=== PATIENT | male | born 1970 | race Hispanic/Latino ===

== ENCOUNTER 2017-07-19 13:34 | Emergency (ER) | payer OTHER | END 2017-07-19 14:57 | disposition home or self-care (01) | LOC: EDH 13:34 | DX: S70.361A Insect bite (nonvenomous), right thigh, initial encounter (principal); L08.9 Local infection of the skin and subcutaneous tissue, unspecified; Z72.0 Tobacco use; W57.XXXA Bitten or stung by nonvenomous insect and other nonvenomous arthropods, initial encounter; Y93.89 Activity, other specified; Y92.89 Other specified places as the place of occurrence of the external cause; Y99.8 Other external cause status ==

== ENCOUNTER 2021-08-03 15:17 | Inpatient (IN) | payer OTHER ==
[~2021-08-03] VITALS: Ht 165.1 cm; Wt 69.4 kg
[2021-08-03 16:26] LABS: BASOPHILS % (AUTO) 0.1 % (0.0-5.0); EOSINOPHILS % (AUTO) 0.1 % (0.0-8.0); HEMATOCRIT 21.2 % (42-54); MEAN CORPUSCULAR HEMOGLOBIN 18.6 pg (27.0-33.0); MEAN CORPUSCULAR HGB CONC 28.8 g/dL (32.0-36.0); MEAN CORPUSCULAR VOLUME 64.6 fL (79-99); MONOCYTES % (AUTO) 4.6 % (3.0-13.0); NEUTROPHILS % (AUTO) 90.8 % (40.0-77.0); PLATELET COUNT (AUTO) 65 K/uL (130-400); RED BLOOD CELL COUNT(AUTO) 3.28 MIL/uL (4.50-6.20); RED CELL DISTRIBUTION WIDTH 19.3 % (11.0-15.5); WHITE BLOOD COUNT (AUTO) 14.2 K/uL (4.8-10.8)
[2021-08-03 16:34] LABS: APPEARANCE,URINE Clear (CLEAR); BILIRUBIN,URINE Small (NEGATIVE); COLOR,URINE Dark Yellow (YELLOW); GLUCOSE, URINE (UA) Negative (NEGATIVE); KETONES,URINE Negative (NEGATIVE); LEUKOCYTE ESTERASE ,URINE Negative (NEGATIVE); NITRATE,URINE Negative (NEGATIVE); OCCULT BLOOD,URINE Negative (NEGATIVE); PH,URINE 5.5 (5.0-8.0); PROTEIN,URINE Negative (NEGATIVE)
[2021-08-03 16:44] LABS: AMPHET/METH SCREEN,URINE NEGATIVE (NEGATIVE); BARBITURATE SCREEN, URINE NEGATIVE (NEGATIVE); BENZODIAZEPINES SCREEN,URINE NEGATIVE (NEGATIVE); CANNABINOID SCREEN,URINE NEGATIVE (NEGATIVE); COCAINE SCREEN,URINE NEGATIVE (NEGATIVE); OPIATE SCREEN,URINE NEGATIVE (NEGATIVE); PHENCYCLIDINE SCREEN,URINE NEGATIVE (NEGATIVE)
[2021-08-03 16:46] LABS: ALBUMIN 1.8 g/dL (3.5-5.0); BILIRUBIN,TOTAL 3.4 mg/dL (0.2-1.0); POTASSIUM 3.9 mmol/L (3.5-5.1); TOTAL PROTEIN, SERUM 6.8 g/dL (6.0-8.3)
[2021-08-03] MEDS ORDERED: 0.9%NACL 1000ML 1,000 ML IV ONE ×2 (17:00→18:00)
[2021-08-03 17:08] LABS: BACTERIA,URINE Few /HPF (None Seen); RBC,URINE None Seen /HPF (0-1); WBC,URINE 0-1 /HPF (0-1)
[2021-08-03 17:09] LABS: SQUAMOUS EPITHELIAL CELL,UR 0-2 /HPF (0-2)
[2021-08-03 17:34] LABS: PLATELET MORPHOLOGY COMMENT DECREASED
[2021-08-03 18:46] LABS: AMMONIA < 3 umol/L (11-32)
[2021-08-03 18:48] LABS: ALCOHOL, BLOOD < 3 mg/dL (0-10)
[2021-08-03 18:56] LABS: CREATININE,URINE RANDOM 74 mg/dL (30-135); SODIUM,URINE RANDOM < 14 mmol/l (40-220)
[2021-08-03] MEDS ORDERED: THIAMINE HCL 100 MG/ML 2ML VIAL IVP SCH (19:00)
[2021-08-03] MEDS ORDERED: LORAZEPAM 2 MG/ML 1 ML VIAL IVP PRN (19:00)
[2021-08-03] MEDS ORDERED: CHLORDIAZEPOXIDE HCL 25 MG CAP PO PRN (19:00)
[2021-08-03] MEDS ORDERED: PHARMACY COMMUNICATION MISC PRN (19:00)
[2021-08-03 19:01] LABS: INR 1.85 (0.85-1.15); PROTHROMBIN TIME 19.5 SEC (9.6-11.6)
[2021-08-03 19:03] LABS: HDL CHOLESTEROL 8 mg/dL (29-71); TRIGLYCERIDES 95 mg/dL (30-200); URIC ACID 3.6 mg/dL (2.6-7.2)
[2021-08-03 19:04] LABS: LDL DIRECT 19 mg/dL (0-99); THYROID STIMULATING HORMONE 0.88 uIU/mL (0.36-3.74)
[2021-08-03 19:05] LABS: CREATININE 0.8 mg/dL (0.5-1.5); POTASSIUM 3.3 mmol/L (3.5-5.1)
[2021-08-03 19:20] LABS: HEMATOCRIT 20.2 % (42-54)
[2021-08-03] MEDS: CEFTRIAXONE 1G VIAL IVP SCH (19:27)
[2021-08-03] MEDS: OCTREOTIDE ACETATE 100 MCG/ML AMP IV SCH (19:27)
[2021-08-03 19:30] LABS: CHOLESTEROL < 35 mg/dL (<200)
[2021-08-03] MEDS ORDERED: DEXTROSE 50%-WATER 50 ML DISP.SYRIN IV PRN (19:30)
[2021-08-03] MEDS ORDERED: GLUCAGON 1MG KIT 1 MG ML IM PRN (19:30)
[2021-08-03] MEDS ORDERED: PHYTONADIONE 10 MG/1 ML AMP SQ ONE (19:30)
[2021-08-03 19:37] LABS: % IRON SATURATION 6.1 % (30-44)
[2021-08-03] MEDS: PANTOPRAZOLE 40 MG/VIAL IVP SCH (20:02)
[2021-08-03] MEDS ORDERED: DOXYCYCLINE HYCLATE 100 MG TABLET PO SCH (21:00)
[2021-08-03] MEDS: AZITHROMYCIN 500MG+NS 250ML IVPB SCH (21:01)
[2021-08-03 22:06] LABS: CREATININE 0.8 mg/dL (0.5-1.5); POTASSIUM 3.3 mmol/L (3.5-5.1)
[2021-08-03] MEDS ORDERED: IRON SUCROSE COMPLEX 100 MG/5 ML VIAL ONE (23:40)
[2021-08-03 23:44] LABS: CREATININE 0.7 mg/dL (0.5-1.5); POTASSIUM 3.5 mmol/L (3.5-5.1)
[2021-08-04] VITALS (12 sets, daily range): BP systolic 92–116; BP diastolic 43–65
[2021-08-04] MEDS ORDERED: IRON SUCROSE COMPLEX 100 MG/5 ML VIAL ONE ×2 (00:40→02:01)
[2021-08-04 01:05] LABS: HEMATOCRIT 21.6 % (42-54)
[2021-08-04 01:12] LABS: CREATININE 0.9 mg/dL (0.5-1.5); POTASSIUM 3.6 mmol/L (3.5-5.1)
[2021-08-04] MEDS ORDERED: DEXTROSE 5 % AND 0.9 % NACL 1,000 ML IV PRN (01:30)
[2021-08-04] MEDS: MIDODRINE HCL 5 MG TABLET PO SCH ×4 (01:46→21:00)
[2021-08-04] MEDS ORDERED: IRON SUCROSE COMPLEX IV SCH ×5 (02:30→09:00)
[2021-08-04] MEDS ORDERED: [UNRECOGNIZED DRUG - OTHER] IV SCH ×2 (02:30→09:00)
[2021-08-04] MEDS ORDERED: [UNRECOGNIZED DRUG - OTHER] IV SCH ×2 (03:00→04:30)
[2021-08-04] MEDS ORDERED: ACETAMINOPHEN 650 MG SUPPOSITORY RC ONE (03:38)
[2021-08-04] MEDS ORDERED: NOREPINEPHRIN 4MG/NS 250ML 250 ML IV ONE (04:24)
[2021-08-04] MEDS ORDERED: ALBUMIN (HUMAN) 25% 50 ML IV ONE (04:37)
[2021-08-04 04:39] LABS: ABG OXYGEN SATURATION 50.5 % (95.0-99.0); HCO3,VENOUS BLOOD GAS 23.1 (21.0-28.0); PCO2,VENOUS BLOOD GAS 35 (35-48); PH,VENOUS BLOOD GAS 7.433 (7.350-7.450)
[2021-08-04 04:42] LABS: HEMATOCRIT 22.1 % (42-54)
[2021-08-04] MEDS ORDERED: SODIUM CHLORIDE 3% FOR INHALATION 4 ML/AMP VIAL.NEB IH ONE ×3 (04:43→11:47)
[2021-08-04 05:00] LABS: CREATININE 0.8 mg/dL (0.5-1.5); POTASSIUM 3.8 mmol/L (3.5-5.1)
[2021-08-04] MEDS ORDERED: PHARMACY COMMUNICATION MISC SCH ×2 (05:00)
[2021-08-04] MEDS: OCTREOTIDE ACETATE 1,250 MCG in 0.9% NACL 250ML 250 ML IV SCH (06:37)
[2021-08-04] MEDS ORDERED: IPRATROPIUM 0.5 MG/2.5 ML INH IH ONE (07:22)
[2021-08-04] MEDS ORDERED: BUDESONIDE 0.5 MG/2 ML INH IH ONE (07:23)
[2021-08-04] MEDS: CEFTRIAXONE 1G VIAL IVP SCH ×2 (07:48→21:40)
[2021-08-04] MEDS: PANTOPRAZOLE 40 MG/VIAL IVP SCH ×2 (07:50→21:39)
[2021-08-04] MEDS: FOLIC ACID 1 MG TABLET PO SCH (08:13)
[2021-08-04] MEDS: MULTIVITAMIN TABLET PO SCH (08:13)
[2021-08-04] MEDS ORDERED: [UNRECOGNIZED DRUG - OTHER] IV SCH (09:00)
[2021-08-04] MEDS: BUDESONIDE 0.5 MG/2 ML INH IH SCH ×2 (09:29→19:12)
[2021-08-04] MEDS: THIAMINE HCL 100 MG/ML 2ML VIAL IVP SCH (10:14)
[2021-08-04] MEDS: IPRATROPIUM 0.5 MG/2.5 ML INH IH PRN (11:43)
[2021-08-04 12:24] LABS: ABG BASE EXCESS -2.3 mmol/L (-2.0-3.0); ABG HCO3 20.5 mmol/L (21.0-28.0); ABG OXYGEN SATURATION 95.5 % (95.0-99.0); ABG PCO2 30 mmHg (35-48)
[2021-08-04 12:44] LABS: CREATININE 0.9 mg/dL (0.5-1.5); MAGNESIUM 2.2 mg/dL (1.80-2.40); POTASSIUM 3.6 mmol/L (3.5-5.1)
[2021-08-04] MEDS ORDERED: NOREPINEPHRIN 4MG/NS 250ML 250 ML IV SCH ×2 (13:00→16:00)
[2021-08-04 13:08] LABS: HEPATITIS A IGM ANTIBODY Non-Reactive (Negative); HEPATITIS B CORE IGM ANTIBODY Non-Reactive (Negative); HEPATITIS B SURFACE ANTIGEN Non-Reactive (Negative); HEPATITIS C ANTIBODY Non-Reactive (NEGATIVE)
[2021-08-04] MEDS ORDERED: ALBUMIN (HUMAN) 25% 50 ML IV SCH (14:00)
[2021-08-04] MEDS: M.V.I. IV [ADULT] 10 ML, FOLIC ACID 1 MG, THIAMINE HCL 100 MG in 0.9%NACL 1000ML 1,000 ML IV SCH (14:06)
[2021-08-04 14:43] LABS: HEMATOCRIT 25.4 % (42-54)
[2021-08-04 14:49] LABS: CREATININE 0.8 mg/dL (0.5-1.5); POTASSIUM 3.6 mmol/L (3.5-5.1)
[2021-08-04] MEDS: ALBUMIN (HUMAN) 25% 50 ML IV SCH ×2 (16:31→22:11)
[2021-08-04] MEDS: SODIUM CHLORIDE 1,000 MG TAB PO SCH ×2 (16:32→22:00)
[2021-08-04 16:51] LABS: HEMATOCRIT 28.1 % (42-54); MEAN CORPUSCULAR HEMOGLOBIN 21.7 pg (27.0-33.0); MEAN CORPUSCULAR HGB CONC 30.6 g/dL (32.0-36.0); NUCLEATED RED BLOOD CELLS 0.8 % (0.0-0.19); PLATELET COUNT (AUTO) 53 K/uL (130-400); RED BLOOD CELL COUNT(AUTO) 3.96 MIL/uL (4.50-6.20); RED CELL DISTRIBUTION WIDTH 23.3 % (11.0-15.5); WHITE BLOOD COUNT (AUTO) 15.2 K/uL (4.8-10.8)
[2021-08-04 17:20] LABS: CREATININE 0.8 mg/dL (0.5-1.5); POTASSIUM 3.5 mmol/L (3.5-5.1)
[2021-08-04 17:28] LABS: BAND NEUTROPHILS % (MANUAL) 12 % (0-2); LYMPHOCYTES % (MANUAL) 3 % (22-44); MAN.DIFF COMMENT-IMPRESSION MANUAL DIFFERENTIAL; MONOCYTES % (MANUAL) 3 % (2-9); SEGMENTED NEUTROPHILS % 82 % (40-70)
[2021-08-04] MEDS: OCTREOTIDE ACETATE 100 MCG/ML AMP IV SCH (19:00)
[2021-08-04] MEDS ORDERED: 0.9% NACL 250ML 250 ML ONE (21:31)
[2021-08-04] MEDS: AZITHROMYCIN 500MG+NS 250ML IVPB SCH (21:40)
[2021-08-04 21:55] LABS: HEMATOCRIT 25.9 % (42-54); MEAN CORPUSCULAR HEMOGLOBIN 22.3 pg (27.0-33.0); MEAN CORPUSCULAR HGB CONC 31.7 g/dL (32.0-36.0); MEAN CORPUSCULAR VOLUME 70.6 fL (79-99); NUCLEATED RED BLOOD CELLS 0.6 % (0.0-0.19); PLATELET COUNT (AUTO) 29 K/uL (130-400); RED BLOOD CELL COUNT(AUTO) 3.67 MIL/uL (4.50-6.20); RED CELL DISTRIBUTION WIDTH 23.3 % (11.0-15.5); WHITE BLOOD COUNT (AUTO) 15.7 K/uL (4.8-10.8)
[2021-08-04 22:06] LABS: CREATININE 0.9 mg/dL (0.5-1.5); POTASSIUM 3.7 mmol/L (3.5-5.1)
[2021-08-04] MEDS ORDERED: ALBUMIN (HUMAN) 25% 100 ML IV ONE (22:10)
[2021-08-04 22:25] LABS: BAND NEUTROPHILS % (MANUAL) 10 % (0-2); LYMPHOCYTES % (MANUAL) 8 % (22-44); MAN.DIFF COMMENT-IMPRESSION MANUAL DIFFERENTIAL; MONOCYTES % (MANUAL) 4 % (2-9); SEGMENTED NEUTROPHILS % 78 % (40-70)
[2021-08-04 22:26] LABS: PLATELET MORPHOLOGY COMMENT DECREASED
[2021-08-05] VITALS (51 sets, daily range): BP systolic 81–112; BP diastolic 38–80
[2021-08-05 03:35] LABS: ABG BASE EXCESS -3.1 mmol/L (-2.0-3.0); ABG HCO3 19.9 mmol/L (21.0-28.0); ABG PCO2 31 mmHg (35-48)
[2021-08-05] MEDS ORDERED: MIDODRINE HCL 5 MG TABLET ONE (03:43)
[2021-08-05] MEDS: SODIUM CHLORIDE 1,000 MG TAB PO SCH ×4 (03:44→21:07)
[2021-08-05] MEDS: ALBUMIN (HUMAN) 25% 50 ML IV SCH ×2 (03:44→09:44)
[2021-08-05] MEDS: MIDODRINE HCL 5 MG TABLET PO SCH ×3 (03:45→21:07)
[2021-08-05 04:37] LABS: BASOPHILS % (AUTO) 0.1 % (0.0-5.0); EOSINOPHILS % (AUTO) 0.1 % (0.0-8.0); HEMATOCRIT 24.6 % (42-54); LYMPHOCYTES % (AUTO) 2.8 % (21.0-51.0); MEAN CORPUSCULAR HEMOGLOBIN 21.6 pg (27.0-33.0); MEAN CORPUSCULAR HGB CONC 30.5 g/dL (32.0-36.0); MEAN CORPUSCULAR VOLUME 70.7 fL (79-99); MONOCYTES % (AUTO) 2.8 % (3.0-13.0); NEUTROPHILS % (AUTO) 92.4 % (40.0-77.0); NUCLEATED RED BLOOD CELLS 0.5 % (0.0-0.19); PLATELET COUNT (AUTO) 33 K/uL (130-400); RED BLOOD CELL COUNT(AUTO) 3.48 MIL/uL (4.50-6.20); RED CELL DISTRIBUTION WIDTH 23.3 % (11.0-15.5); WHITE BLOOD COUNT (AUTO) 14.8 K/uL (4.8-10.8)
[2021-08-05 04:49] LABS: INR 1.86 (0.85-1.15); PROTHROMBIN TIME 19.6 SEC (9.6-11.6)
[2021-08-05 04:54] LABS: PARTIAL THROMBOPLASTIN TIME 101.4 SEC (26.3-35.5)
[2021-08-05 05:03] LABS: ALBUMIN 2.1 g/dL (3.5-5.0); CREATININE 0.9 mg/dL (0.5-1.5); MAGNESIUM 2.1 mg/dL (1.80-2.40); PHOSPHORUS 2.2 mg/dL (2.5-4.9); POTASSIUM 3.7 mmol/L (3.5-5.1); THYROID STIMULATING HORMONE 0.16 uIU/mL (0.36-3.74)
[2021-08-05] MEDS: BUDESONIDE 0.5 MG/2 ML INH IH SCH ×2 (07:06→19:24)
[2021-08-05 09:45] LABS: BASOPHILS % (AUTO) 0.2 % (0.0-5.0); EOSINOPHILS % (AUTO) 0.1 % (0.0-8.0); HEMATOCRIT 24.8 % (42-54); LYMPHOCYTES % (AUTO) 4.8 % (21.0-51.0); MEAN CORPUSCULAR HEMOGLOBIN 22.1 pg (27.0-33.0); MEAN CORPUSCULAR VOLUME 71.1 fL (79-99); MONOCYTES % (AUTO) 5.4 % (3.0-13.0); NEUTROPHILS % (AUTO) 87.4 % (40.0-77.0); NUCLEATED RED BLOOD CELLS 0.5 % (0.0-0.19); PLATELET COUNT (AUTO) 38 K/uL (130-400); RED BLOOD CELL COUNT(AUTO) 3.49 MIL/uL (4.50-6.20); RED CELL DISTRIBUTION WIDTH 23.6 % (11.0-15.5); WHITE BLOOD COUNT (AUTO) 14.6 K/uL (4.8-10.8)
[2021-08-05] MEDS: MULTIVITAMIN TABLET PO SCH (09:45)
[2021-08-05] MEDS: THIAMINE HCL 100 MG/ML 2ML VIAL IVP SCH (09:45)
[2021-08-05] MEDS: FOLIC ACID 1 MG TABLET PO SCH (09:45)
[2021-08-05] MEDS: PANTOPRAZOLE 40 MG/VIAL IVP SCH ×2 (09:46→20:06)
[2021-08-05] MEDS: CEFTRIAXONE 1G VIAL IVP SCH ×2 (09:46→20:06)
[2021-08-05 09:51] LABS: POTASSIUM 3.7 mmol/L (3.5-5.1)
[2021-08-05] MEDS: M.V.I. IV [ADULT] 10 ML, FOLIC ACID 1 MG, THIAMINE HCL 100 MG in 0.9%NACL 1000ML 1,000 ML IV SCH (10:09)
[2021-08-05] MEDS: IRON SUCROSE COMPLEX IV SCH (10:09)
[2021-08-05] MEDS: [UNRECOGNIZED DRUG - OTHER] IV SCH (10:09)
[2021-08-05] MEDS ORDERED: COMPOUND IV MISC 1 EACH IVSOLN MISC PRN (12:00)
[2021-08-05] MEDS: OCTREOTIDE ACETATE 100 MCG/ML AMP IV SCH (13:59)
[2021-08-05 16:06] LABS: BASOPHILS % (AUTO) 0.2 % (0.0-5.0); EOSINOPHILS % (AUTO) 0.1 % (0.0-8.0); HEMATOCRIT 25.4 % (42-54); MEAN CORPUSCULAR HGB CONC 30.7 g/dL (32.0-36.0); MEAN CORPUSCULAR VOLUME 71.5 fL (79-99); MONOCYTES % (AUTO) 4.8 % (3.0-13.0); NEUTROPHILS % (AUTO) 87.7 % (40.0-77.0); NUCLEATED RED BLOOD CELLS 0.3 % (0.0-0.19); PLATELET COUNT (AUTO) 39 K/uL (130-400); RED BLOOD CELL COUNT(AUTO) 3.55 MIL/uL (4.50-6.20); RED CELL DISTRIBUTION WIDTH 23.7 % (11.0-15.5); WHITE BLOOD COUNT (AUTO) 14.9 K/uL (4.8-10.8)
[2021-08-05 16:12] LABS: CREATININE 1.1 mg/dL (0.5-1.5); POTASSIUM 3.7 mmol/L (3.5-5.1)
[2021-08-05] MEDS ORDERED: 0.9% NACL 250ML 250 ML ONE (19:58)
[2021-08-05] MEDS: AZITHROMYCIN 500MG+NS 250ML IVPB SCH (20:06)
[2021-08-05 22:34] LABS: BASOPHILS % (AUTO) 0.2 % (0.0-5.0); EOSINOPHILS % (AUTO) 0.1 % (0.0-8.0); HEMATOCRIT 26.3 % (42-54); LYMPHOCYTES % (AUTO) 5.4 % (21.0-51.0); MEAN CORPUSCULAR HEMOGLOBIN 22.4 pg (27.0-33.0); MEAN CORPUSCULAR HGB CONC 30.8 g/dL (32.0-36.0); MEAN CORPUSCULAR VOLUME 72.7 fL (79-99); MONOCYTES % (AUTO) 4.9 % (3.0-13.0); NEUTROPHILS % (AUTO) 86.9 % (40.0-77.0); NUCLEATED RED BLOOD CELLS 0.2 % (0.0-0.19); PLATELET COUNT (AUTO) 24 K/uL (130-400); RED BLOOD CELL COUNT(AUTO) 3.62 MIL/uL (4.50-6.20); RED CELL DISTRIBUTION WIDTH 24.1 % (11.0-15.5); WHITE BLOOD COUNT (AUTO) 13.8 K/uL (4.8-10.8)
[2021-08-05 22:44] LABS: CREATININE 1.2 mg/dL (0.5-1.5); POTASSIUM 3.6 mmol/L (3.5-5.1)
[2021-08-06] VITALS (74 sets, daily range): BP systolic 75–149; BP diastolic 28–110
[2021-08-06] MEDS: SODIUM CHLORIDE 1,000 MG TAB PO SCH ×4 (03:59→21:24)
[2021-08-06 04:16] LABS: HEMATOCRIT 24.6 % (42-54); MEAN CORPUSCULAR HEMOGLOBIN 21.8 pg (27.0-33.0); MEAN CORPUSCULAR HGB CONC 30.1 g/dL (32.0-36.0); MEAN CORPUSCULAR VOLUME 72.4 fL (79-99); NEUTROPHILS % (AUTO) 85.9 % (40.0-77.0); PLATELET COUNT (AUTO) 16 K/uL (130-400); RED CELL DISTRIBUTION WIDTH 23.9 % (11.0-15.5); WHITE BLOOD COUNT (AUTO) 13.2 K/uL (4.8-10.8)
[2021-08-06 04:17] LABS: BASOPHILS % (AUTO) 0.2 % (0.0-5.0); EOSINOPHILS % (AUTO) 0.2 % (0.0-8.0); LYMPHOCYTES % (AUTO) 6.4 % (21.0-51.0); MONOCYTES % (AUTO) 5.1 % (3.0-13.0); NUCLEATED RED BLOOD CELLS 0.2 % (0.0-0.19)
[2021-08-06 04:42] LABS: ALBUMIN 1.8 g/dL (3.5-5.0); BILIRUBIN,TOTAL 5.5 mg/dL (0.2-1.0); CREATININE 1.2 mg/dL (0.5-1.5); MAGNESIUM 2.2 mg/dL (1.80-2.40); PHOSPHORUS 2.8 mg/dL (2.5-4.9); POTASSIUM 3.5 mmol/L (3.5-5.1); TOTAL PROTEIN, SERUM 5.6 g/dL (6.0-8.3)
[2021-08-06] MEDS: MIDODRINE HCL 5 MG TABLET PO SCH ×3 (05:06→21:24)
[2021-08-06] MEDS: BUDESONIDE 0.5 MG/2 ML INH IH SCH ×2 (06:49→19:25)
[2021-08-06] MEDS: PANTOPRAZOLE 40 MG/VIAL IVP SCH ×2 (08:50→20:22)
[2021-08-06] MEDS: MULTIVITAMIN TABLET PO SCH (08:50)
[2021-08-06] MEDS: CEFTRIAXONE 1G VIAL IVP SCH ×2 (08:50→20:21)
[2021-08-06] MEDS: FOLIC ACID 1 MG TABLET PO SCH (08:50)
[2021-08-06] MEDS: THIAMINE HCL 100 MG/ML 2ML VIAL IVP SCH (08:51)
[2021-08-06] MEDS: IRON SUCROSE COMPLEX IV SCH (08:51)
[2021-08-06] MEDS: M.V.I. IV [ADULT] 10 ML, FOLIC ACID 1 MG, THIAMINE HCL 100 MG in 0.9%NACL 1000ML 1,000 ML IV SCH (08:51)
[2021-08-06] MEDS: [UNRECOGNIZED DRUG - OTHER] IV SCH (08:51)
[2021-08-06 10:15] LABS: BASOPHILS % (AUTO) 0.1 % (0.0-5.0); EOSINOPHILS % (AUTO) 0.2 % (0.0-8.0); HEMATOCRIT 25.6 % (42-54); LYMPHOCYTES % (AUTO) 6.6 % (21.0-51.0); MEAN CORPUSCULAR HEMOGLOBIN 22.1 pg (27.0-33.0); MEAN CORPUSCULAR HGB CONC 30.1 g/dL (32.0-36.0); MEAN CORPUSCULAR VOLUME 73.4 fL (79-99); MONOCYTES % (AUTO) 5.9 % (3.0-13.0); NEUTROPHILS % (AUTO) 84.5 % (40.0-77.0); NUCLEATED RED BLOOD CELLS 0.2 % (0.0-0.19); PLATELET COUNT (AUTO) 36 K/uL (130-400); RED BLOOD CELL COUNT(AUTO) 3.49 MIL/uL (4.50-6.20); RED CELL DISTRIBUTION WIDTH 24.5 % (11.0-15.5); WHITE BLOOD COUNT (AUTO) 12.7 K/uL (4.8-10.8)
[2021-08-06 10:30] LABS: CREATININE 1.3 mg/dL (0.5-1.5); POTASSIUM 3.3 mmol/L (3.5-5.1)
[2021-08-06] MEDS: OCTREOTIDE ACETATE 1,250 MCG in 0.9% NACL 250ML 250 ML IV SCH (11:38)
[2021-08-06 16:04] LABS: BASOPHILS % (AUTO) 0.2 % (0.0-5.0); EOSINOPHILS % (AUTO) 0.1 % (0.0-8.0); HEMATOCRIT 25.9 % (42-54); MEAN CORPUSCULAR HEMOGLOBIN 21.7 pg (27.0-33.0); MEAN CORPUSCULAR HGB CONC 29.3 g/dL (32.0-36.0); MEAN CORPUSCULAR VOLUME 73.8 fL (79-99); MONOCYTES % (AUTO) 6.4 % (3.0-13.0); NEUTROPHILS % (AUTO) 81.8 % (40.0-77.0); NUCLEATED RED BLOOD CELLS 0.2 % (0.0-0.19); PLATELET COUNT (AUTO) 32 K/uL (130-400); RED BLOOD CELL COUNT(AUTO) 3.51 MIL/uL (4.50-6.20); RED CELL DISTRIBUTION WIDTH 24.7 % (11.0-15.5); WHITE BLOOD COUNT (AUTO) 10.5 K/uL (4.8-10.8)
[2021-08-06 16:09] LABS: CREATININE 1.2 mg/dL (0.5-1.5); POTASSIUM 3.5 mmol/L (3.5-5.1)
[2021-08-06] MEDS: OCTREOTIDE ACETATE 100 MCG/ML AMP IV SCH (19:00)
[2021-08-06] MEDS: AZITHROMYCIN 500MG+NS 250ML IVPB SCH (20:22)
[2021-08-06 22:22] LABS: BASOPHILS % (AUTO) 0.1 % (0.0-5.0); EOSINOPHILS % (AUTO) 0.1 % (0.0-8.0); HEMATOCRIT 26.1 % (42-54); LYMPHOCYTES % (AUTO) 13.1 % (21.0-51.0); MEAN CORPUSCULAR HEMOGLOBIN 22.2 pg (27.0-33.0); MEAN CORPUSCULAR HGB CONC 30.7 g/dL (32.0-36.0); MEAN CORPUSCULAR VOLUME 72.3 fL (79-99); MONOCYTES % (AUTO) 8.3 % (3.0-13.0); NEUTROPHILS % (AUTO) 76.5 % (40.0-77.0); NUCLEATED RED BLOOD CELLS 0.4 % (0.0-0.19); PLATELET COUNT (AUTO) 27 K/uL (130-400); RED BLOOD CELL COUNT(AUTO) 3.61 MIL/uL (4.50-6.20); RED CELL DISTRIBUTION WIDTH 24.6 % (11.0-15.5); WHITE BLOOD COUNT (AUTO) 7.7 K/uL (4.8-10.8)
[2021-08-06 22:36] LABS: CREATININE 1.2 mg/dL (0.5-1.5); POTASSIUM 3.4 mmol/L (3.5-5.1)
[2021-08-07] VITALS (18 sets, daily range): BP systolic 99–135; BP diastolic 45–81
[2021-08-07 04:39] LABS: BASOPHILS % (AUTO) 0.1 % (0.0-5.0); EOSINOPHILS % (AUTO) 0.1 % (0.0-8.0); HEMATOCRIT 24.3 % (42-54); LYMPHOCYTES % (AUTO) 17.8 % (21.0-51.0); MEAN CORPUSCULAR HEMOGLOBIN 22.4 pg (27.0-33.0); MEAN CORPUSCULAR HGB CONC 31.3 g/dL (32.0-36.0); MEAN CORPUSCULAR VOLUME 71.5 fL (79-99); MONOCYTES % (AUTO) 8.7 % (3.0-13.0); NEUTROPHILS % (AUTO) 70.5 % (40.0-77.0); PLATELET COUNT (AUTO) 13 K/uL (130-400); RED CELL DISTRIBUTION WIDTH 24.8 % (11.0-15.5); WHITE BLOOD COUNT (AUTO) 7.6 K/uL (4.8-10.8)
[2021-08-07] MEDS: SODIUM CHLORIDE 1,000 MG TAB PO SCH ×2 (04:51→09:48)
[2021-08-07 05:01] LABS: ALBUMIN 1.7 g/dL (3.5-5.0); BILIRUBIN,TOTAL 6.4 mg/dL (0.2-1.0); CREATININE 1.2 mg/dL (0.5-1.5); MAGNESIUM 2.5 mg/dL (1.80-2.40); PHOSPHORUS 2.8 mg/dL (2.5-4.9); POTASSIUM 3.5 mmol/L (3.5-5.1); TOTAL PROTEIN, SERUM 5.7 g/dL (6.0-8.3)
[2021-08-07] MEDS: MIDODRINE HCL 5 MG TABLET PO SCH ×3 (05:17→21:01)
[2021-08-07] MEDS: IPRATROPIUM 0.5 MG/2.5 ML INH IH PRN ×2 (06:28→06:29)
[2021-08-07] MEDS: BUDESONIDE 0.5 MG/2 ML INH IH SCH ×2 (06:31→18:43)
[2021-08-07 09:37] LABS: HEMATOCRIT 26.3 % (42-54); MEAN CORPUSCULAR HEMOGLOBIN 22.2 pg (27.0-33.0); MEAN CORPUSCULAR HGB CONC 30.4 g/dL (32.0-36.0); MEAN CORPUSCULAR VOLUME 73.1 fL (79-99); NUCLEATED RED BLOOD CELLS 0.3 % (0.0-0.19); PLATELET COUNT (AUTO) 23 K/uL (130-400); RED CELL DISTRIBUTION WIDTH 25.1 % (11.0-15.5); WHITE BLOOD COUNT (AUTO) 7.1 K/uL (4.8-10.8)
[2021-08-07 09:43] LABS: POTASSIUM 3.5 mmol/L (3.5-5.1)
[2021-08-07] MEDS: PANTOPRAZOLE 40 MG/VIAL IVP SCH ×2 (09:47→20:23)
[2021-08-07] MEDS: CEFTRIAXONE 1G VIAL IVP SCH ×2 (09:47→20:23)
[2021-08-07] MEDS: M.V.I. IV [ADULT] 10 ML, FOLIC ACID 1 MG, THIAMINE HCL 100 MG in 0.9%NACL 1000ML 1,000 ML IV SCH (09:47)
[2021-08-07] MEDS: [UNRECOGNIZED DRUG - OTHER] IV SCH (09:47)
[2021-08-07] MEDS: IRON SUCROSE COMPLEX IV SCH (09:47)
[2021-08-07] MEDS: MULTIVITAMIN TABLET PO SCH (09:48)
[2021-08-07] MEDS: THIAMINE HCL 100 MG/ML 2ML VIAL IVP SCH (09:48)
[2021-08-07 10:30] LABS: CREATININE 1.1 mg/dL (0.5-1.5)
[2021-08-07 12:59] LABS: LYMPHOCYTES % (MANUAL) 4 % (22-44); MAN.DIFF COMMENT-IMPRESSION MANUAL DIFFERENTIAL; MONOCYTES % (MANUAL) 2 % (2-9); SEGMENTED NEUTROPHILS % 94 % (40-70)
[2021-08-07 13:00] LABS: PLATELET MORPHOLOGY COMMENT MARKED DECREASE
[2021-08-07 15:16] LABS: BASOPHILS % (AUTO) 0.1 % (0.0-5.0); EOSINOPHILS % (AUTO) 0.1 % (0.0-8.0); LYMPHOCYTES % (AUTO) 22.1 % (21.0-51.0); MEAN CORPUSCULAR HEMOGLOBIN 22.3 pg (27.0-33.0); MEAN CORPUSCULAR HGB CONC 30.4 g/dL (32.0-36.0); MEAN CORPUSCULAR VOLUME 73.2 fL (79-99); MONOCYTES % (AUTO) 9.1 % (3.0-13.0); NEUTROPHILS % (AUTO) 66.3 % (40.0-77.0); NUCLEATED RED BLOOD CELLS 0.3 % (0.0-0.19); PLATELET COUNT (AUTO) 24 K/uL (130-400); RED BLOOD CELL COUNT(AUTO) 3.55 MIL/uL (4.50-6.20); RED CELL DISTRIBUTION WIDTH 25.4 % (11.0-15.5)
[2021-08-07 15:29] LABS: CREATININE 1.1 mg/dL (0.5-1.5); POTASSIUM 3.5 mmol/L (3.5-5.1)
[2021-08-07] MEDS: AZITHROMYCIN 500MG+NS 250ML IVPB SCH (20:23)
[2021-08-07 21:41] LABS: BASOPHILS % (AUTO) 0.3 % (0.0-5.0); EOSINOPHILS % (AUTO) 0.2 % (0.0-8.0); HEMATOCRIT 23.5 % (42-54); LYMPHOCYTES % (AUTO) 22.6 % (21.0-51.0); MEAN CORPUSCULAR HEMOGLOBIN 22.5 pg (27.0-33.0); MEAN CORPUSCULAR HGB CONC 31.1 g/dL (32.0-36.0); MEAN CORPUSCULAR VOLUME 72.5 fL (79-99); MONOCYTES % (AUTO) 8.7 % (3.0-13.0); NEUTROPHILS % (AUTO) 66.5 % (40.0-77.0); PLATELET COUNT (AUTO) 31 K/uL (130-400); RED BLOOD CELL COUNT(AUTO) 3.24 MIL/uL (4.50-6.20); RED CELL DISTRIBUTION WIDTH 25.3 % (11.0-15.5); WHITE BLOOD COUNT (AUTO) 6.5 K/uL (4.8-10.8)
[2021-08-07 21:55] LABS: POTASSIUM 3.4 mmol/L (3.5-5.1)
[2021-08-08] VITALS: BP 124/74
[2021-08-08 04:00] VITALS: BP 109/68
[2021-08-08 04:20] LABS: BASOPHILS % (AUTO) 0.2 % (0.0-5.0); EOSINOPHILS % (AUTO) 0.3 % (0.0-8.0); HEMATOCRIT 23.3 % (42-54); LYMPHOCYTES % (AUTO) 26.3 % (21.0-51.0); MEAN CORPUSCULAR HEMOGLOBIN 21.8 pg (27.0-33.0); MEAN CORPUSCULAR HGB CONC 29.6 g/dL (32.0-36.0); MEAN CORPUSCULAR VOLUME 73.5 fL (79-99); MONOCYTES % (AUTO) 9.5 % (3.0-13.0); NEUTROPHILS % (AUTO) 61.4 % (40.0-77.0); PLATELET COUNT (AUTO) 33 K/uL (130-400); RED BLOOD CELL COUNT(AUTO) 3.17 MIL/uL (4.50-6.20); RED CELL DISTRIBUTION WIDTH 25.7 % (11.0-15.5); WHITE BLOOD COUNT (AUTO) 6.7 K/uL (4.8-10.8)
[2021-08-08 04:38] LABS: ALBUMIN 1.6 g/dL (3.5-5.0); BILIRUBIN,TOTAL 6.7 mg/dL (0.2-1.0); CREATININE 1.1 mg/dL (0.5-1.5); MAGNESIUM 2.4 mg/dL (1.80-2.40); POTASSIUM 3.4 mmol/L (3.5-5.1); TOTAL PROTEIN, SERUM 5.9 g/dL (6.0-8.3)
[2021-08-08] MEDS: MIDODRINE HCL 5 MG TABLET PO SCH ×3 (06:27→20:23)
[2021-08-08] MEDS: BUDESONIDE 0.5 MG/2 ML INH IH SCH ×2 (06:35→17:54)
[2021-08-08 08:00] VITALS: BP 135/78
[2021-08-08] MEDS: MULTIVITAMIN TABLET PO SCH (08:56)
[2021-08-08] MEDS: PANTOPRAZOLE 40 MG/VIAL IVP SCH ×2 (08:56→20:23)
[2021-08-08] MEDS: CEFTRIAXONE 1G VIAL IVP SCH (08:56)
[2021-08-08] MEDS: M.V.I. IV [ADULT] 10 ML, FOLIC ACID 1 MG, THIAMINE HCL 100 MG in 0.9%NACL 1000ML 1,000 ML IV SCH (08:56)
[2021-08-08] MEDS: THIAMINE HCL 100 MG/ML 2ML VIAL IVP SCH (09:24)
[2021-08-08 12:00] VITALS: BP 127/88
[2021-08-08 14:21] LABS: BASOPHILS % (AUTO) 0.3 % (0.0-5.0); EOSINOPHILS % (AUTO) 0.4 % (0.0-8.0); HEMATOCRIT 28.3 % (42-54); LYMPHOCYTES % (AUTO) 23.3 % (21.0-51.0); MEAN CORPUSCULAR HEMOGLOBIN 23.2 pg (27.0-33.0); MEAN CORPUSCULAR HGB CONC 30.7 g/dL (32.0-36.0); MEAN CORPUSCULAR VOLUME 75.5 fL (79-99); MONOCYTES % (AUTO) 9.6 % (3.0-13.0); NEUTROPHILS % (AUTO) 63.9 % (40.0-77.0); NUCLEATED RED BLOOD CELLS 0.3 % (0.0-0.19); PLATELET COUNT (AUTO) 19 K/uL (130-400); RED BLOOD CELL COUNT(AUTO) 3.75 MIL/uL (4.50-6.20); RED CELL DISTRIBUTION WIDTH 27.2 % (11.0-15.5); WHITE BLOOD COUNT (AUTO) 6.9 K/uL (4.8-10.8)
[2021-08-08 14:30] LABS: CREATININE 0.8 mg/dL (0.5-1.5); POTASSIUM 3.5 mmol/L (3.5-5.1)
[2021-08-08 16:00] VITALS: BP 136/87
[2021-08-08] MEDS: LACTULOSE 20 GM/30 ML UDCUP PO SCH (18:20)
[2021-08-08 20:00] VITALS: BP_SYST 113; BP_SYST 136; BP_DIAS 68; BP_DIAS 87
[2021-08-08 22:23] LABS: BASOPHILS % (AUTO) 0.2 % (0.0-5.0); EOSINOPHILS % (AUTO) 0.5 % (0.0-8.0); HEMATOCRIT 24.4 % (42-54); LYMPHOCYTES % (AUTO) 24.1 % (21.0-51.0); MEAN CORPUSCULAR HEMOGLOBIN 23.3 pg (27.0-33.0); MEAN CORPUSCULAR HGB CONC 31.6 g/dL (32.0-36.0); MEAN CORPUSCULAR VOLUME 73.7 fL (79-99); MONOCYTES % (AUTO) 9.6 % (3.0-13.0); NEUTROPHILS % (AUTO) 63.8 % (40.0-77.0); PLATELET COUNT (AUTO) 29 K/uL (130-400); RED BLOOD CELL COUNT(AUTO) 3.31 MIL/uL (4.50-6.20); RED CELL DISTRIBUTION WIDTH 26.5 % (11.0-15.5); WHITE BLOOD COUNT (AUTO) 6.1 K/uL (4.8-10.8)
[2021-08-08 22:33] LABS: CREATININE 0.8 mg/dL (0.5-1.5); POTASSIUM 3.2 mmol/L (3.5-5.1)
[2021-08-09] VITALS: BP 122/65
[2021-08-09 04:00] VITALS: BP 108/57
[2021-08-09] MEDS: MIDODRINE HCL 5 MG TABLET PO SCH ×3 (06:22→21:07)
[2021-08-09] MEDS: LACTULOSE 20 GM/30 ML UDCUP PO SCH ×2 (06:22→17:21)
[2021-08-09 06:28] LABS: MEAN CORPUSCULAR HEMOGLOBIN 23.5 pg (27.0-33.0); MEAN CORPUSCULAR VOLUME 73.5 fL (79-99); NUCLEATED RED BLOOD CELLS 0.3 % (0.0-0.19); PLATELET COUNT (AUTO) 32 K/uL (130-400); RED CELL DISTRIBUTION WIDTH 26.8 % (11.0-15.5); WHITE BLOOD COUNT (AUTO) 5.7 K/uL (4.8-10.8)
[2021-08-09] MEDS: BUDESONIDE 0.5 MG/2 ML INH IH SCH ×2 (06:33→18:51)
[2021-08-09 06:36] LABS: ALBUMIN 1.5 g/dL (3.5-5.0); BILIRUBIN,TOTAL 7.7 mg/dL (0.2-1.0); CREATININE 0.8 mg/dL (0.5-1.5); MAGNESIUM 2.2 mg/dL (1.80-2.40); POTASSIUM 3.2 mmol/L (3.5-5.1)
[2021-08-09 07:41] LABS: BAND NEUTROPHILS % (MANUAL) 2 % (0-2); LYMPHOCYTES % (MANUAL) 5 % (22-44); MONOCYTES % (MANUAL) 4 % (2-9); SEGMENTED NEUTROPHILS % 89 % (40-70)
[2021-08-09 07:44] LABS: MAN.DIFF COMMENT-IMPRESSION MANUAL DIFFERENTIAL; PLATELET MORPHOLOGY COMMENT MARKED DECREASE
[2021-08-09] MEDS ORDERED: POTASSIUM CHLORIDE 20MEQ/100ML 100 ML IV PRN (08:00)
[2021-08-09] MEDS ORDERED: MAGNESIUM 2GM PREMIX 50ML 50 ML IV PRN (08:00)
[2021-08-09] MEDS ORDERED: LIDOCAINE HCL-MPF 1% 2ML VIAL IV PRN (08:00)
[2021-08-09] MEDS: PANTOPRAZOLE 40 MG/VIAL IVP SCH ×2 (08:41→21:07)
[2021-08-09] MEDS: MULTIVITAMIN TABLET PO SCH (08:42)
[2021-08-09] MEDS: THIAMINE HCL 100 MG/ML 2ML VIAL IVP SCH (08:42)
[2021-08-09 08:44] VITALS: BP 115/60
[2021-08-09] MEDS: M.V.I. IV [ADULT] 10 ML, FOLIC ACID 1 MG, THIAMINE HCL 100 MG in 0.9%NACL 1000ML 1,000 ML IV SCH (10:17)
[2021-08-09 12:30] VITALS: BP 128/74
[2021-08-09] MEDS: POTASSIUM CHLORIDE 10% ELIXIR 20 MEQ/15 ML UDCUP PO PRN ×2 (13:17→17:16)
[2021-08-09 16:41] VITALS: BP 133/69
[2021-08-09 20:00] VITALS: BP 142/70
[2021-08-10] VITALS: BP 131/67
[2021-08-10 04:00] VITALS: BP 126/64
[2021-08-10] MEDS: LACTULOSE 20 GM/30 ML UDCUP PO SCH ×2 (05:02→18:00)
[2021-08-10] MEDS: BUDESONIDE 0.5 MG/2 ML INH IH SCH ×2 (06:35→18:57)
[2021-08-10] MEDS: MIDODRINE HCL 5 MG TABLET PO SCH ×3 (06:37→21:39)
[2021-08-10 07:46] VITALS: BP 132/76
[2021-08-10] MEDS: PANTOPRAZOLE 40 MG/VIAL IVP SCH ×2 (08:49→21:39)
[2021-08-10] MEDS: THIAMINE HCL 100 MG/ML 2ML VIAL IVP SCH (08:49)
[2021-08-10] MEDS: MULTIVITAMIN TABLET PO SCH (08:49)
[2021-08-10] MEDS: M.V.I. IV [ADULT] 10 ML, FOLIC ACID 1 MG, THIAMINE HCL 100 MG in 0.9%NACL 1000ML 1,000 ML IV SCH (09:00)
[2021-08-10 12:29] VITALS: BP 127/63
[2021-08-10 12:48] LABS: HEMATOCRIT 27.3 % (42-54); MEAN CORPUSCULAR HEMOGLOBIN 24.2 pg (27.0-33.0); MEAN CORPUSCULAR HGB CONC 31.5 g/dL (32.0-36.0); MEAN CORPUSCULAR VOLUME 76.7 fL (79-99); PLATELET COUNT (AUTO) 36 K/uL (130-400); RED BLOOD CELL COUNT(AUTO) 3.56 MIL/uL (4.50-6.20); RED CELL DISTRIBUTION WIDTH 28.9 % (11.0-15.5); WHITE BLOOD COUNT (AUTO) 5.5 K/uL (4.8-10.8)
[2021-08-10 12:58] LABS: CREATININE 0.7 mg/dL (0.5-1.5); POTASSIUM 3.2 mmol/L (3.5-5.1)
[2021-08-10 16:40] VITALS: BP 116/59
[2021-08-10 18:22] LABS: % IRON SATURATION 91.7 % (30-44)
[2021-08-10 20:00] VITALS: BP 128/63
[2021-08-11] VITALS (17 sets, daily range): BP systolic 92–137; BP diastolic 43–90
[2021-08-11] MEDS: MIDODRINE HCL 5 MG TABLET PO SCH ×3 (06:00→21:01)
[2021-08-11] MEDS: LACTULOSE 20 GM/30 ML UDCUP PO SCH ×2 (06:13→17:49)
[2021-08-11] MEDS: BUDESONIDE 0.5 MG/2 ML INH IH SCH ×2 (07:22→18:10)
[2021-08-11] MEDS: MULTIVITAMIN TABLET PO SCH (09:00)
[2021-08-11] MEDS: PANTOPRAZOLE 40 MG/VIAL IVP SCH ×2 (09:19→21:02)
[2021-08-11] MEDS: THIAMINE HCL 100 MG/ML 2ML VIAL IVP SCH (09:20)
[2021-08-11] MEDS ORDERED: FUROSEMIDE 20MG VIAL IV ONE (10:45)
[2021-08-11] MEDS ORDERED: PROPOFOL 10 MG/ML 20ML VIAL IV ONE (14:37)
[2021-08-11] MEDS ORDERED: LIDOCAINE PF 100MG/5ML (2%) SYRINGE 5ML ONE (14:37)
[2021-08-11 17:08] LABS: HEMATOCRIT 29.1 % (42-54); MEAN CORPUSCULAR HEMOGLOBIN 23.7 pg (27.0-33.0); MEAN CORPUSCULAR HGB CONC 30.9 g/dL (32.0-36.0); MEAN CORPUSCULAR VOLUME 76.8 fL (79-99); PLATELET COUNT (AUTO) 40 K/uL (130-400); RED BLOOD CELL COUNT(AUTO) 3.79 MIL/uL (4.50-6.20); RED CELL DISTRIBUTION WIDTH 30.6 % (11.0-15.5)
[2021-08-11 17:39] LABS: CREATININE 0.8 mg/dL (0.5-1.5); POTASSIUM 3.1 mmol/L (3.5-5.1)
[2021-08-11 17:44] LABS: ALBUMIN 1.5 g/dL (3.5-5.0); TOTAL PROTEIN, SERUM 6.7 g/dL (6.0-8.3)
[2021-08-11] MEDS: KCL 20 MEQ ERTAB PO PRN ×2 (17:50→23:32)
[2021-08-11] MEDS: FUROSEMIDE 20MG VIAL IV SCH (21:01)
[2021-08-11] MEDS: POTASSIUM CHLORIDE 10% ELIXIR 20 MEQ/15 ML UDCUP PO PRN (21:01)
[2021-08-12 03:57] VITALS: BP 114/58
[2021-08-12 04:17] LABS: HEMATOCRIT 24.7 % (42-54); MEAN CORPUSCULAR HEMOGLOBIN 24.5 pg (27.0-33.0); MEAN CORPUSCULAR HGB CONC 32.4 g/dL (32.0-36.0); MEAN CORPUSCULAR VOLUME 75.5 fL (79-99); PLATELET COUNT (AUTO) 34 K/uL (130-400); RED BLOOD CELL COUNT(AUTO) 3.27 MIL/uL (4.50-6.20); RED CELL DISTRIBUTION WIDTH 30.5 % (11.0-15.5); WHITE BLOOD COUNT (AUTO) 6.7 K/uL (4.8-10.8)
[2021-08-12 04:31] LABS: ALBUMIN 1.4 g/dL (3.5-5.0); CREATININE 0.8 mg/dL (0.5-1.5); POTASSIUM 3.3 mmol/L (3.5-5.1)
[2021-08-12 04:52] LABS: B-TYPE NATRIURETIC PEPTIDE 513 pg/mL (0-100)
[2021-08-12] MEDS: KCL 20 MEQ ERTAB PO PRN ×2 (05:08→07:54)
[2021-08-12] MEDS: MIDODRINE HCL 5 MG TABLET PO SCH (05:08)
[2021-08-12] MEDS: LACTULOSE 20 GM/30 ML UDCUP PO SCH (05:11)
[2021-08-12] MEDS: BUDESONIDE 0.5 MG/2 ML INH IH SCH (06:49)
[2021-08-12 07:09] VITALS: BP 128/64
[2021-08-12] MEDS: MULTIVITAMIN TABLET PO SCH (07:53)
[2021-08-12] MEDS: FUROSEMIDE 20MG VIAL IV SCH (07:54)
[2021-08-12] MEDS: PANTOPRAZOLE 40 MG/VIAL IVP SCH (07:54)
[2021-08-12] MEDS: THIAMINE HCL 100 MG/ML 2ML VIAL IVP SCH (07:54)
[2021-08-12 09:15] VITALS: BP 169/89
== END 2021-08-12 10:25 | disposition home or self-care (01) | DRG 432 ==
LOC: EDH 15:17 → EDHIP 15:18 → 2CH 08-04 20:07 → 2AH 08-07 15:09 → 2DH 08-11 00:43 → 3BH 08-12 09:33
PROVIDERS: ADMIT Hospitalist; ATTEND Hospitalist
PROC: 30233N1 Transfusion of Nonautologous Red Blood Cells into Peripheral Vein, Percutaneous Approach (ICD-10-PCS; 2021-08-03)
PROC: 30233N1 Transfusion of Nonautologous Red Blood Cells into Peripheral Vein, Percutaneous Approach (ICD-10-PCS; 2021-08-04)
PROC: 0DJ08ZZ Inspection of Upper Intestinal Tract, Via Natural or Artificial Opening Endoscopic (ICD-10-PCS; principal; 2021-08-11)
DX: K70.30 Alcoholic cirrhosis of liver without ascites (principal); G92.8 Other toxic encephalopathy; E43 Unspecified severe protein-calorie malnutrition; J15.6 Pneumonia due to other Gram-negative bacteria; K85.90 Acute pancreatitis without necrosis or infection, unspecified; D68.9 Coagulation defect, unspecified; E87.1 Hypo-osmolality and hyponatremia; N17.9 Acute kidney failure, unspecified; K22.10 Ulcer of esophagus without bleeding; K76.6 Portal hypertension; D50.9 Iron deficiency anemia, unspecified; D69.59 Other secondary thrombocytopenia; E16.2 Hypoglycemia, unspecified; Z20.822 Contact with and (suspected) exposure to COVID-19; R00.0 Tachycardia, unspecified; Z88.0 Allergy status to penicillin; R13.14 Dysphagia, pharyngoesophageal phase; R54 Age-related physical debility; Z68.25 Body mass index [BMI] 25.0-25.9, adult; E78.5 Hyperlipidemia, unspecified; E87.6 Hypokalemia; Z82.49 Family history of ischemic heart disease and other diseases of the circulatory system; Z74.01 Bed confinement status; Y90.9 Presence of alcohol in blood, level not specified; F10.229 Alcohol dependence with intoxication, unspecified; F17.200 Nicotine dependence, unspecified, uncomplicated; I10 Essential (primary) hypertension; K21.00 Gastro-esophageal reflux disease with esophagitis, without bleeding; K29.00 Acute gastritis without bleeding; K31.89 Other diseases of stomach and duodenum
CPT/HCPCS: 36415; 36430; 36600; 43235; 70450; 71045; 74176; 74230; 80048; 80053; 80061; 80074; 80305; 81001; 82040; 82140; 82270; 82306; 82435; 82533; 82550; 82570; 82607; 82728; 82746; 82803; 82947; 82948; 83540; 83550; 83605; 83615; 83690; 83735; 83880; 83930; 83935; 84100; 84132; 84145; 84295; 84300; 84443; 84520; 84540; 84550; 85014; 85018; 85025; 85027; 85610; 85651; 85730; 86140; 86334; 86677; 86701; 86738; 86850; 86900; 86901; 86923; 87040; 87390; 87449; 87635; 87804; 92610; 92611; 93306; 93356; 93971; 94640; 94664; 97039; 99291; A4606; C9113; G0378; J0456; J0696; J1756; J1940; J2001; J2354; J2704; J3411; J3430; J3490; J7030; J7050; J7070; P9016; P9046; P9047